=== PATIENT | female | born 1955 | race Caucasian/White ===

== ENCOUNTER 2020-12-03 04:15 | Emergency (ER) | payer MEDICARE, OTHER ==
[2020-12-03] MEDS ORDERED: Oxymetazoline 0.05% Nasal Spray 30 ML Bottle NAS ONE (04:27)
--- NOTE | 2020-12-03 04:56 | EDM.PDOC ---
ED HPI GENERAL MEDICAL PROBLEM - General Chief Complaint: ENT Problem Stated Complaint: Nosebleed Time Seen by Provider: 12/03/20 04:30 Source of Information: Reports: Patient History Limitations: Reports: No Limitations - History of Present Illness INITIAL COMMENTS - FREE TEXT/NARRATIVE: Patient comes emergency department today from home with concerns of a nosebleed. This patient is not a regular patient at the hospital since she has had her kids. She has no problems with epistaxis in the past. She was laying in bed on her right side when suddenly she felt something draining down her face and noticed that she had some spontaneous bleeding from her left nares. She did attempt to apply pressure to the nose prior to arrival but was unable to get it under control. She then came to the emergency department. She has had no recent trauma to her nose. No sinus congestion drainage pressure pain. No fever no chills. No weakness dizziness lightheadedness following the episode of bleeding. - Related Data Allergies Allergy/AdvReac Type Severity Reaction Status Date / Time No Known Allergies Allergy Verified 12/03/20 05:03 Home Meds: Home Meds . [Unable to Verify Home Med List] 12/03/20 [History] ED ROS ENT - Review of Systems Review Of Systems: Comprehensive ROS is negative, except as noted in HPI. ED EXAM, ENT - Physical Exam Exam: See Below Exam Limited By: No Limitations General Appearance: Alert, WD/WN, No Apparent Distress Eye Exam: Bilateral Eye: EOMI Ears: Normal External Exam, Normal Canal, Hearing Grossly Normal, TM Blood (Right TM with blood. Not erythematous. ). No: Normal TMs (Right with TM blood left clear. ) Nose: Active Bleeding (from the left nares posteriorly unable to identify the site. ) Mouth/Throat: Normal Lips. No: Normal Inspection (large posterior pharynx clot without airway compromise), Drooling Head: Atraumatic, Normocephalic Neck: Normal Inspection, Supple, Non-Tender Respiratory/Chest: No Respiratory Distress, Lungs Clear Cardiovascular: Normal Peripheral Pulses, Regular Rate, Rhythm Neurological: Alert, Oriented, Normal Cognition, No Motor/Sensory Deficits Psychiatric: Normal Affect, Normal Mood Skin: Warm, Dry, Intact, Normal Color, No Rash Course - Vital Signs Last Recorded V/S: Last Vital Signs Temp 98.5 F 12/03/20 04:15 Pulse 70 12/03/20 05:02 Resp 16 12/03/20 05:02 BP 142/94 H 12/03/20 05:02 Pulse Ox 96 12/03/20 04:15 - Orders/Labs/Meds Meds: Medications Discontinued Medications Generic Name Dose Route Start Last Admin Trade Name Iris PRN Reason Stop Dose Admin Oxymetazoline HCl 1 ml 12/03/20 04:27 12/03/20 04:35 Oxymetazoline 0.05% Nasal [place] 30 Ml Bottle ANJALI 12/03/20 04:28 2 spray ONETIME ONE Administration - Re-Assessments/Exams Free Text/Narrative Re-Assessment/Exam: Oxymetazoline was instilled 2 sprays bilateral nares. Then direct pressure was held on the base of the nasal bones for the next 10 minutes. The patient did cough up a rather large clot that was in the posterior pharynx clearing her posterior pharynx. Did not have any abdominal pain or nausea. The patient was monitored in the emergency department over the next 45 minutes or so she did not have any recurrence of the bleeding from the nares. Inspection of the pharynx does not identify any postnasal bleeding. Her blood pressure has improved. Discharge directions as below are explained to the patient she was comfortable with this plan and her questions were answered. Departure - Departure Time of Disposition: 16:50 Disposition: Home, Self-Care 01 Clinical Impression: Epistaxis - Discharge Information Instructions: Nosebleed, [id number] Referrals: PCP,None [Primary Care Provider] - Forms: ED Department Discharge Additional Instructions: Try not to blow your nose for the next few days. Nasal saline OTC spray, 2 sprays to each nostril 4 times a day for the next 5 days. Keeps the nose moist and prevent bleeding. Then twice a day as needed. If bleeding re-occurs 2 sprays to each nostril and then pinch your nose as shown in the ED for a total of 20 mins without removing pressure. Return to the ED if new or worsening symptoms. Follow up with PCP if any concerns. Sepsis Event Note (ED) - Focused Exam Vital Signs: Vital Signs Temp Pulse Resp BP Pulse Ox 12/03/20 05:02 70 16 142/94 H 12/03/20 04:15 98.5 F 81 16 180/94 H 96
== END 2020-12-03 05:20 | disposition home or self-care (01) ==
LOC: VM.ED 04:15
DX: R04.0 Epistaxis (principal)
CPT/HCPCS: 99283; A9270-GY

== ENCOUNTER 2021-12-23 09:05 | Day surgery (SDC) | payer MEDICARE ==
[2021-12-23] MEDS: Lactated Ringers 1,000 ML IV SCH (09:26)
[2021-12-23] MEDS ORDERED: fentaNYL 100 MCG/2 ML SDV ONE (09:59)
[2021-12-23] MEDS ORDERED: Propofol 200 MG/20 ML SDV ONE (09:59)
== END 2021-12-23 12:18 | disposition home or self-care (01) ==
LOC: VM.SDS 09:05
PROVIDERS: ATTEND Family Medicine
DX: Z12.11 Encounter for screening for malignant neoplasm of colon (principal); K57.30 Diverticulosis of large intestine without perforation or abscess without bleeding; G25.81 Restless legs syndrome; M85.80 Other specified disorders of bone density and structure, unspecified site; E78.00 Pure hypercholesterolemia, unspecified; M75.02 Adhesive capsulitis of left shoulder; Z86.010 Personal history of colon polyps; Z98.890 Other specified postprocedural states; Z79.899 Other long term (current) drug therapy
CPT/HCPCS: 00812; J2704; J3010; J7120

== ENCOUNTER 2022-03-15 14:51 | Emergency (ER) | payer OTHER, MEDICARE ==
[2022-03-15] MEDS ORDERED: Acetaminophen 325 MG Tab PO ONE (15:33)
== END 2022-03-15 15:48 | disposition home or self-care (01) ==
LOC: VM.ED 14:51
DX: S52.502A Unspecified fracture of the lower end of left radius, initial encounter for closed fracture (principal); E78.00 Pure hypercholesterolemia, unspecified; E66.9 Obesity, unspecified; Z68.30 Body mass index [BMI] 30.0-30.9, adult; Z79.82 Long term (current) use of aspirin; Z79.899 Other long term (current) drug therapy; W00.0XXA Fall on same level due to ice and snow, initial encounter
CPT/HCPCS: 73100-LT; 99283

== ENCOUNTER 2024-03-27 07:37 | Emergency (ER) | payer MEDICARE, OTHER ==
[2024-03-27] MEDS: Lidocaine 1% with EPINEPHrine 1:100,000 20 ML MDV INFILT STA (07:50)
== END 2024-03-27 08:39 | disposition home or self-care (01) ==
LOC: VM.ED 07:37 → SUPCPDRO 07:37 → VM.ED 08:39
DX: S01.81XA Laceration without foreign body of other part of head, initial encounter (principal); E78.00 Pure hypercholesterolemia, unspecified; E66.9 Obesity, unspecified; Z88.8 Allergy status to other drugs, medicaments and biological substances; Z79.82 Long term (current) use of aspirin; Z79.899 Other long term (current) drug therapy; Z90.710 Acquired absence of both cervix and uterus; Z68.29 Body mass index [BMI] 29.0-29.9, adult; W22.8XXA Striking against or struck by other objects, initial encounter
CPT/HCPCS: 12013; 99282; J3490